=== PATIENT | male | born 1990 | race Hispanic/Latino ===

== ENCOUNTER 2016-09-15 02:24 | Emergency (ER) | payer OTHER ==
[~2016-09-15] VITALS: Ht 185.4 cm; Wt 91.6 kg
[~2016-09-15 02:24] MED LIST: LEVSIN0.125 MG PO; MULTIVITAMIN1 TA1 PO; ZOFRAN ODT4 MG SL
[2016-09-15 02:41] VITALS: BP 153/83
[2016-09-15] MEDS ORDERED: CYCLOBENZAPRINE10 M1 PO (02:41)
[2016-09-15] MEDS ORDERED: IBUPROFEN600 M1 PO (02:41)
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
[2016-09-15] MEDS ORDERED: DAILY MULTIPLE1 EACH PO (02:43)
== END 2016-09-15 02:55 ==
LOC: ERH 02:24
DX: S39.012A Strain of muscle, fascia and tendon of lower back, initial encounter (principal); T14.8 Other injury of unspecified body region; V89.2XXA Person injured in unspecified motor-vehicle accident, traffic, initial encounter; Y92.9 Unspecified place or not applicable

== ENCOUNTER 2016-09-16 22:04 | Emergency (ER) | payer OTHER ==
[~2016-09-16] VITALS: Ht 185.4 cm; Wt 91.6 kg
[~2016-09-16 22:04] MED LIST changes: +CYCLOBENZAPRINE10 M1 PO; +DAILY MULTIPLE1 EACH PO; +IBUPROFEN600 M1 PO
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
[2016-09-17 00:20] VITALS: BP 135/76
--- NOTE | 2016-09-17 10:12 | RADIOLOGY REPORT ---
EXAMINATION: XR WRIST, LEFT CLINICAL INFORMATION: Pain. COMPARISON: None TECHNIQUE: AP, lateral, and oblique views of the left wrist. FINDINGS: The bones and soft tissues are normal. No fracture. Alignment is anatomic with normal joint spaces. No erosions or abnormal soft tissue calcifications. IMPRESSION: Normal left wrist.
== END 2016-09-17 00:21 ==
LOC: ERH 22:04
DX: T14.8 Other injury of unspecified body region (principal); M62.838 Other muscle spasm; M54.9 Dorsalgia, unspecified
CPT/HCPCS: 72050; 72100; 73030-RT; 73110-LT

== ENCOUNTER 2017-06-09 19:43 | Emergency (ER) | payer OTHER ==
[~2017-06-09] VITALS: Ht 185.4 cm; Wt 90.7 kg
[~2017-06-09 19:43] MED LIST changes: +LIDODERM1 EACH TOP
[2017-06-09 19:56] VITALS: BP 148/91
[2017-06-12] MEDS ORDERED: SKELAXIN800 M1 PO (21:45)
[2017-06-12] MEDS ORDERED: NABUMETONE500 M1 PO (21:46)
== END 2017-06-09 23:54 | disposition admitted as inpatient to this hospital (09) ==
LOC: ERH 19:43
DX: R51 Headache (principal); H53.8 Other visual disturbances

== ENCOUNTER 2017-06-30 22:29 | Emergency (ER) | payer OTHER ==
[~2017-06-30] VITALS: Ht 185.4 cm; Wt 90.7 kg
[~2017-06-30 22:29] MED LIST changes: +NABUMETONE500 M1 PO; +SKELAXIN800 M1 PO
[2017-06-30 22:38] VITALS: BP 144/80
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
== END 2017-07-01 00:15 ==
LOC: ERH 22:29
DX: F07.81 Postconcussional syndrome (principal)